=== PATIENT | male | born 1990 | race Caucasian/White ===

== ENCOUNTER 2017-05-06 08:49 | Emergency (ER) | payer SELFPAY ==
[2017-05-06] MEDS ORDERED: HYDROCODONE/APAP 5/325MG TABLET PO ONE ×2 (09:06→09:14)
--- NOTE | 2017-05-06 09:14 | Emergency Department Record ---
History of Present Illness - General Chief complaint: Rash Stated complaint: RASH Time Seen by Provider: 05/06/17 08:59 Mode of Arrival: Ambulatory Limitations: No limitations - History of Present Illness Initial comments: The patient is here due to L sided CP for 2 days then a rash for one day. He denies any SOB, fever, chills, cough, ROMAN or AP. The patient has no medical issues also. MD complaint: Rash Onset/Timin -: Days(s) Severity: Moderate Severity scale (1-10): 8 Quality: Aching, Burning Consistency: Constant Associated symptoms: Denies other symptoms - Related Data Previous Rx's Medication Instructions Recorded Naproxen [Naprosyn] 500 mg PO BID #14 tablet. 05/06/17 Valacyclovir HCl [Valacyclovir] 1,000 mg PO TID #21 tablet 05/06/17 Allergies Allergy/AdvReac Type Severity Reaction Status Date / Time No Known Drug Allergies Allergy Verified 05/06/17 08:59 Travel Screening - Travel/Exposure Within Last 30 Days Have you traveled within the last 30 days?: No - Travel/Exposure Within Last Year Have you traveled outside the [place] in the last year?: No - Additonal Travel Details Have you been exposed to anyone with a communicable illness?: No - Travel Symptoms Symptom Screening: None Review of Systems Constitutional: Denies: Chills, Fever Eyes: Denies: Eye discharge ENT: Denies: Congestion Respiratory: Denies: Cough, Dyspnea Past Medical History - SOCIAL HISTORY Smoking Status: Current every day smoker Alcohol Use: None Drug Use: None - RESPIRATORY Hx Respiratory Disorders: No - CARDIOVASCULAR Hx Cardio Disorders: No - NEURO Hx Neuro Disorders: No - GI Hx GI Disorders: No - Hx Genitourinary Disorders: No - ENDOCRINE Hx Endocrine Disorders: No - MUSCULOSKELETAL Hx Musculoskeletal Disorders: No - PSYCH Hx Psych Problems: No - HEMATOLOGY/ONCOLOGY Hx Hematology/Oncology Disorders: No Family Medical History Any Significant Family History?: Yes Physical Exam - General General Appearance: Alert, Oriented x3, Cooperative, No acute distress - Head Head exam: Atraumatic, Normocephalic - Eye Eye exam: Normal appearance, PERRL - ENT Throat exam: Normal inspection. negative: Tonsillar erythema, Tonsillar exudate - Neck Neck exam: Normal inspection, Full ROM. negative: Tenderness - Respiratory Respiratory exam: Normal lung sounds bilaterally. negative: Respiratory distress - Cardiovascular Cardiovascular Exam: Regular rate, Normal rhythm, Normal heart sounds - Extremities Extremities exam: Normal inspection, Full ROM, Normal capillary refill. negative: Tenderness - Skin Skin exam: Rash, Vesicles (There is a vesicular rash to the L T4 dermatome. It appears to be classic Herpes Zoster.) Course Vital Signs 05/06/17 08:55 Temperature 98.0 F Pulse Rate 74 Respiratory 16 Rate Blood Pressure 128/79 Pulse Ox 97 - Reevaluation(s) Reevaluation #1: I did explain to the patient that it appears he has Shingles. We will discharge him on pain medicine and antivirals. 05/06/17 09:11 Disposition Disposition: Discharge Clinical Impression: Shingles outbreak Qualifiers: Herpes zoster complications: without complications Qualified Code(s): B02.9 - Zoster without complications Disposition: Home, Self-Care Condition: (2) Stable Instructions: Shingles (ED) Additional Instructions: Please take the Naprosyn for pain and take the Valtrex as directed. Please see a PCP next week if not better. Return to the ER for any worsening symptoms or any fever, cough, vomiting, or worsening rash. Prescriptions: Naproxen [Naprosyn] 500 mg PO BID #14 tablet. Valacyclovir HCl [Valacyclovir] 1,000 mg PO TID #21 tablet Forms: Patient Portal Access Time of Disposition: 09:14 Quality - Quality Measures Quality Measures: N/A - Blood Pressure Screening View Details: Yes Does Patient Have Any of the Following: No Blood Pressure Classification: Pre-Hypertensive BP Reading Systolic Measurement: 128 Diastolic Measurement: 79 Screening for High Blood Pressure: < Pre-Hypertensive BP, F/U Documented > [ [id number]] Pre-Hypertensive Follow-up Interventions: Referral to alternative/primary care provider.
== END 2017-05-06 09:22 | disposition home or self-care (01) ==
LOC: ER 08:49
DX: B02.9 Zoster without complications (principal)
CPT/HCPCS: 99282